=== PATIENT | female | born 1960 | race Caucasian/White ===

== ENCOUNTER 2016-06-06 21:40 | Emergency (ER) | payer BC, OTHER ==
[2016-06-06] MEDS ORDERED: OXAZEPAM 15 MG CAP As Ordered ONE ×2 (23:06)
--- NOTE | 2016-06-07 00:14 | EDDOCDS ---
Physician Documentation [facility] Name: Annemarie Torrez Age: 56 yrs Sex: Female : 1960 Arrival Date: 06/06/2016 Time: 21:40 Bed 12 Private MD: Disposition: 06/06/16 23:46 Discharged to Home/Self Care. Impression: Alcohol abuse with intoxication. - Condition is Stable. - Discharge Instructions: Alcohol and Drug Addiction, Finding Treatment, Alcohol Intoxication, Alcohol Intoxication, Gaej-az-Prkv, Alcohol Withdrawal, Gsvi-vf-Ajsa. - Prescriptions for Oxazepam 30 mg Oral Capsule - take 1 capsule by ORAL route 3 times per day MDD: 3 tabs; 10 capsule. - Medication Reconciliation, Local Pharmacy Hours form. - Follow up: Referral list, As provided by PFS; When: Call to arrange an appointment; Reason: Continuance of care. - Problem is an acute exacerbation. - Symptoms have improved. - Notes: YOU ARE TAKING THE FIRST STEPS AT GETTING HELP. CALL THE NUMBERS PROVIDED BY THE HORSE TRAINER TO ESTABLISH WITH A INPATIENT OR OUTPATIENT REHAB PROGRAM. Historical: - Allergies: no known allergies; - Home Meds: 1. Imodium 2 mg Oral cap as needed 2. Nexium 20 mg Oral cpDR once daily - PMHx: none; - PSHx: Shoulder Arthroplasty, Left; Shoulder Arthroplasty. Right; ; Appendectomy; Cholecystectomy; - Social history: Smoking status: Patient uses tobacco products, heavy tobacco smoker. Patient uses alcohol on a daily basis. patient/guardian reports recent binge of alcohol consumption. No barriers to communication noted, The patient speaks fluent Lao. - Family history: Not pertinent. - : The pt / caregiver states he / she is not on anticoagulants. Home medication list is obtained from family members. - Exposure Risk Screening:: None identified. Vital Signs: 06/06 21:42 BP 154 / 71; Pulse 86; Resp 18; Temp 96.2(O); Pulse Ox 98% on R/A; Weight 122.47 kg / gely 270 lbs (R); Height 5 ft. 1 in. (154.94 cm) (R); Pain 0/10; 22:25 BP 136 / 72 (auto/); jp6 22:26 Pulse 82 MON; Pulse Ox 96% ; jp6 23:00 Pulse 90 MON; Pulse Ox 95% ; jp6 23:30 Pulse 90 MON; jp6 23:52 Pulse 84 MON; jp6 23:52 BP 132 / 78; Pulse 84; Resp 16; Temp 98(O); Pulse Ox 99% on R/A; Pain 0/10; jp6 21:42 Body Mass Index 51.02 (122.47 kg, 154.94 cm) gely MDM: 22:58 Oxazepam 30 mg PO once ordered. mm11 22:58 Consult: Life Support Technician ordered. mm11 23:17 Consult: Life Support Technician complete. ml4 06/07 00:03 Financial registration complete. [facility] Administered Medications: 06/06 23:08 Drug: Oxazepam 30 mg [oxazepam 15 mg capsule (2 caps)] Route: PO; jp6 Signatures: Thuy Babin, PSA PSA ml4 Bernardino Ignacio, DO DO mm11 Pamela Macedo,RN RN rs3 Eun Coronel [facility] Shelby NobleRN RN jp6 MTDD
--- NOTE | 2016-06-07 00:14 | EDDOCDS ---
Nurse's Notes [facility] Name: Annemarie Torrez Age: 56 yrs Sex: Female : 1960 Arrival Date: 06/06/2016 Time: 21:40 Bed 12 Private MD: Diagnosis: Alcohol abuse with intoxication Presentation: 06/06 21:49 Presenting complaint: Patient states: has been drinking every night beer 12 OZ, 8 or rs3 more. vodka 10 Oz every day. Last drink 8 pm tonight. She wants to be in Rehab and get help. family brought her here. Mental Health Triage Level: Level 2: ETOH abuse. Adult Sepsis Screening: The patient does not have new or worsening altered mentation. Patient's respiratory rate is less than 22. Systolic blood pressure is greater than 100. Patient has a qSOFA score of 0- Negative Sepsis Screen. Suicide/Homicide risk assessment- the patient denies having any suicidal and/or homicidal ideations and does not present with any other emotional, behavioral or mental health complaints. Status: Patient is not a customer services supervisor or dependent. Transition of care: patient was not received from another setting of care. 21:49 Acuity: THEA Level 3 rs3 21:49 Method Of Arrival: Walkin/Carried/Asstd rs3 Triage Assessment: 21:55 General: Appears cachectic. Pain: Denies pain. HIV screening NA for this visit Offered rs3 previously. Historical: - Allergies: no known allergies; - Home Meds: 1. Imodium 2 mg Oral cap as needed 2. Nexium 20 mg Oral cpDR once daily - PMHx: none; - PSHx: Shoulder Arthroplasty, Left; Shoulder Arthroplasty. Right; ; Appendectomy; Cholecystectomy; - Social history: Smoking status: Patient uses tobacco products, heavy tobacco smoker. Patient uses alcohol on a daily basis. patient/guardian reports recent binge of alcohol consumption. No barriers to communication noted, The patient speaks fluent Romansh. - Family history: Not pertinent. - : The pt / caregiver states he / she is not on anticoagulants. Home medication list is obtained from family members. - Exposure Risk Screening:: None identified. Screenin:26 Screening information is obtained from the patient. Fall risk: No risks identified. jp6 Assistance ADL's: requires no assistance with activities of daily living. Abuse/DV Screen: The patient / caregiver reports he/she is: not in a situation that causes fear, pain or injury. Nutritional screening: No deficits noted. Advance Directives: Currently, there is no health care proxy. There is no active DNR order. There is no living will. home support is adequate. Assessment: 22:32 Reassessment: Patient appears in no apparent distress at this time. General: Appears in jp6 no apparent distress, comfortable, obese, well developed, well nourished, Behavior is appropriate for age, cooperative, pleasant. Pain: Denies pain. Neurological: Level of Consciousness is awake, alert, Oriented to person, place, time, Speech is normal. EENT: No deficits noted. Cardiovascular: Capillary refill < 3 seconds Heart tones S1 S2 present Rhythm is sinus rhythm No ectopy. Respiratory: Airway is patent Respiratory effort is even, unlabored, Respiratory pattern is regular, symmetrical, Breath sounds are clear bilaterally. GI: Abdomen is obese, Bowel sounds present X 4 quads. : No deficits noted. Derm: Skin is dry, Skin is pale, Skin temperature is warm. Musculoskeletal: No deficits noted. 06/07 00:04 Reassessment: Patient appears in no apparent distress at this time. Patient states jp6 symptoms have improved. General: Appears in no apparent distress, comfortable, Behavior is appropriate for age, cooperative. Neurological: Level of Consciousness is awake, alert, Oriented to person, place, time. Cardiovascular: Rhythm is sinus rhythm No ectopy. Respiratory: Airway is patent Respiratory effort is even, unlabored, Respiratory pattern is regular, symmetrical. Derm: Skin is pink, warm & dry. Social Work Consult: 06/06 23:13 Social Work Note: Met pt at bedside regarding alcohol abuse. Admits drinking daily for ml4 many years and is requesting detox. Admits being at [facility] who referred her here for admission, however was informed by [facility] does not offer detox . She adamantly denies SI and HI, able to CFS. Referrals for outpt services was given at bedside and directed to follow up with [place] for further tx. Vital Signs: 21:42 BP 154 / 71; Pulse 86; Resp 18; Temp 96.2(O); Pulse Ox 98% on R/A; Weight 122.47 kg gely (R); Height 5 ft. 1 in. (154.94 cm) (R); Pain 0/10; 22:25 BP 136 / 72 (auto/); jp6 22:26 Pulse 82 MON; Pulse Ox 96% ; jp6 23:00 Pulse 90 MON; Pulse Ox 95% ; jp6 23:30 Pulse 90 MON; jp6 23:52 Pulse 84 MON; jp6 23:52 BP 132 / 78; Pulse 84; Resp 16; Temp 98(O); Pulse Ox 99% on R/A; Pain 0/10; jp6 21:42 Body Mass Index 51.02 (122.47 kg, 154.94 cm) gely Vitals: 21:42 Log In Time: June 06, 2016 at 21:42. gely ED Course: 21:41 Patient visited by Amelia Horvath PCA. gely 21:41 Patient moved to Waiting gely 21:42 Patient visited by Amelia Horvath PCA. gely 21:42 Patient moved to Pre RCE gely 21:54 Triage Initiated rs3 22:08 Patient moved to 12 cln 22:16 Shelby Noble,RN is Primary Nurse. jp6 22:26 The patient / caregiver is instructed regarding the plan of care and ED course. Cardiac jp6 monitor on. Pulse ox on. NIBP on. 22:37 Bernardino Ignacio DO is Attending Physician. mm11 22:37 Patient visited by Bernardino Ignacio DO. mm11 22:58 Patient visited by Bernardino Ignacio DO. mm11 23:42 Patient visited by Bernardino Ignacio DO. mm11 23:46 Referral list, As provided by PFS is Referral Physician. mm11 23:52 No IV's were initiated during this patient's visit. No procedures done that require jp6 assistance. Administered Medications: 23:08 Drug: Oxazepam 30 mg [oxazepam 15 mg capsule (2 caps)] Route: PO; jp6 Order Results: There are currently no results for this order. Outcome: 23:46 Discharge ordered by Provider. mm11 23:52 Discharge Assessment: Patient awake, alert and oriented x 3. No cognitive and/or jp6 functional deficits noted. Patient verbalized understanding of disposition instructions. patient administered narcotics - yes. Pt provided with safe discharge. The following High Risk Discharge criteria are identified: None. Discharged to home ambulatory, with family. Condition: improved. Discharge instructions given to patient, family, Instructed on discharge instructions, follow up and referral plans. medication usage, Demonstrated understanding of instructions, medications, Pt was receptive of discharge instructions/ teaching. Prescriptions given X 1. No special radiology studies were completed. Property :Personal belongings accompany Pt. 06/07 00:13 Patient left the ED. jp6 Signatures: Thuy Babin, PSA PSA ml4 Bernardino Ignacio, DO DO mm11 Pamela Macedo,RN RN rs3 Amelia Horvath, MIDDLE SCHOOL TEACHER MIDDLE SCHOOL TEACHER Aria Padilla, MIDDLE SCHOOL TEACHER MIDDLE SCHOOL TEACHER Shelby Wolfe,RN RN jp6 SEAND
[2016-06-07] MEDS ORDERED: METAL LOCK LOOP XX ONE (02:52)
--- NOTE | 2016-06-09 01:14 | EDDOCDS ---
Nurse's Notes [facility] Name: Annemarie Torrez Age: 56 yrs Sex: Female : 1960 Arrival Date: 06/06/2016 Time: 21:40 Bed 12 Private MD: Diagnosis: Alcohol abuse with intoxication Presentation: 06/06 21:49 Presenting complaint: Patient states: has been drinking every night beer 12 OZ, 8 or rs3 more. vodka 10 Oz every day. Last drink 8 pm tonight. She wants to be in Rehab and get help. family brought her here. Mental Health Triage Level: Level 2: ETOH abuse. Adult Sepsis Screening: The patient does not have new or worsening altered mentation. Patient's respiratory rate is less than 22. Systolic blood pressure is greater than 100. Patient has a qSOFA score of 0- Negative Sepsis Screen. Suicide/Homicide risk assessment- the patient denies having any suicidal and/or homicidal ideations and does not present with any other emotional, behavioral or mental health complaints. Status: Patient is not a garage door service technician or dependent. Transition of care: patient was not received from another setting of care. 21:49 Acuity: THEA Level 3 rs3 21:49 Method Of Arrival: Walkin/Carried/Asstd rs3 Triage Assessment: 21:55 General: Appears cachectic. Pain: Denies pain. HIV screening NA for this visit Offered rs3 previously. Historical: - Allergies: no known allergies; - Home Meds: 1. Imodium 2 mg Oral cap as needed 2. Nexium 20 mg Oral cpDR once daily - PMHx: none; - PSHx: Shoulder Arthroplasty, Left; Shoulder Arthroplasty. Right; ; Appendectomy; Cholecystectomy; - Social history: Smoking status: Patient uses tobacco products, heavy tobacco smoker. Patient uses alcohol on a daily basis. patient/guardian reports recent binge of alcohol consumption. No barriers to communication noted, The patient speaks fluent Yoruba. - Family history: Not pertinent. - : The pt / caregiver states he / she is not on anticoagulants. Home medication list is obtained from family members. - Exposure Risk Screening:: None identified. Screenin:26 Screening information is obtained from the patient. Fall risk: No risks identified. jp6 Assistance ADL's: requires no assistance with activities of daily living. Abuse/DV Screen: The patient / caregiver reports he/she is: not in a situation that causes fear, pain or injury. Nutritional screening: No deficits noted. Advance Directives: Currently, there is no health care proxy. There is no active DNR order. There is no living will. home support is adequate. Assessment: 22:32 Reassessment: Patient appears in no apparent distress at this time. General: Appears in jp6 no apparent distress, comfortable, obese, well developed, well nourished, Behavior is appropriate for age, cooperative, pleasant. Pain: Denies pain. Neurological: Level of Consciousness is awake, alert, Oriented to person, place, time, Speech is normal. EENT: No deficits noted. Cardiovascular: Capillary refill < 3 seconds Heart tones S1 S2 present Rhythm is sinus rhythm No ectopy. Respiratory: Airway is patent Respiratory effort is even, unlabored, Respiratory pattern is regular, symmetrical, Breath sounds are clear bilaterally. GI: Abdomen is obese, Bowel sounds present X 4 quads. : No deficits noted. Derm: Skin is dry, Skin is pale, Skin temperature is warm. Musculoskeletal: No deficits noted. 06/07 00:04 Reassessment: Patient appears in no apparent distress at this time. Patient states jp6 symptoms have improved. General: Appears in no apparent distress, comfortable, Behavior is appropriate for age, cooperative. Neurological: Level of Consciousness is awake, alert, Oriented to person, place, time. Cardiovascular: Rhythm is sinus rhythm No ectopy. Respiratory: Airway is patent Respiratory effort is even, unlabored, Respiratory pattern is regular, symmetrical. Derm: Skin is pink, warm & dry. Social Work Consult: 06/06 23:13 Social Work Note: Met pt at bedside regarding alcohol abuse. Admits drinking daily for ml4 many years and is requesting detox. Admits being at [facility] who referred her here for admission, however was informed by [facility] does not offer detox . She adamantly denies SI and HI, able to CFS. Referrals for outpt services was given at bedside and directed to follow up with [place] for further tx. Vital Signs: 21:42 BP 154 / 71; Pulse 86; Resp 18; Temp 96.2(O); Pulse Ox 98% on R/A; Weight 122.47 kg gely (R); Height 5 ft. 1 in. (154.94 cm) (R); Pain 0/10; 22:25 BP 136 / 72 (auto/); jp6 22:26 Pulse 82 MON; Pulse Ox 96% ; jp6 23:00 Pulse 90 MON; Pulse Ox 95% ; jp6 23:30 Pulse 90 MON; jp6 23:52 Pulse 84 MON; jp6 23:52 BP 132 / 78; Pulse 84; Resp 16; Temp 98(O); Pulse Ox 99% on R/A; Pain 0/10; jp6 21:42 Body Mass Index 51.02 (122.47 kg, 154.94 cm) gely Vitals: 21:42 Log In Time: June 06, 2016 at 21:42. gely ED Course: 21:41 Patient visited by Amelia Horvath PCA. gely 21:41 Patient moved to Waiting gely 21:42 Patient visited by Amelia Horvath PCA. geyl 21:42 Patient moved to Pre RCE gely 21:54 Triage Initiated rs3 22:08 Patient moved to 12 cln 22:16 Shelby Noble,RN is Primary Nurse. jp6 22:26 The patient / caregiver is instructed regarding the plan of care and ED course. Cardiac jp6 monitor on. Pulse ox on. NIBP on. 22:37 Bernardino Ignacio DO is Attending Physician. mm11 22:37 Patient visited by Bernardino Ignacio DO. mm11 22:58 Patient visited by Bernardino Ignacio DO. mm11 23:42 Patient visited by Bernardino Ignacio DO. mm11 23:46 Referral list, As provided by PFS is Referral Physician. mm11 23:52 No IV's were initiated during this patient's visit. No procedures done that require jp6 assistance. 06/07 00:32 Patient name changed from Annemarie\S\E\S\Abar\S\ to Annemarie\S\Sophy\S\Abar. EDMS 00:34 [facility] [place] Agreement was scanned into [employer] and attached to record. [facility] 10:35 T-Sheet-- Draft Copy was scanned into [employer] and attached to record. gb Administered Medications: 06/06 23:08 Drug: Oxazepam 30 mg [oxazepam 15 mg capsule (2 caps)] Route: PO; jp6 Order Results: There are currently no results for this order. Outcome: 23:46 Discharge ordered by Provider. mm11 23:52 Discharge Assessment: Patient awake, alert and oriented x 3. No cognitive and/or jp6 functional deficits noted. Patient verbalized understanding of disposition instructions. patient administered narcotics - yes. Pt provided with safe discharge. The following High Risk Discharge criteria are identified: None. Discharged to home ambulatory, with family. Condition: improved. Discharge instructions given to patient, family, Instructed on discharge instructions, follow up and referral plans. medication usage, Demonstrated understanding of instructions, medications, Pt was receptive of discharge instructions/ teaching. Prescriptions given X 1. No special radiology studies were completed. Property :Personal belongings accompany Pt. 06/07 00:13 Patient left the ED. jp6 Signatures: Dispatcher [employer] EDMS Lois Jewell, Reg Reg Thuy Busch, PSA PSA ml4 Bernardino Ignacio, DO mm11 Pamela Macedo,RN RN rs3 Amelia Horvath, PROPELLANT ASSEMBLER PROPELLANT ASSEMBLER Eun Alonso Crystal, PROPELLANT ASSEMBLER PROPELLANT ASSEMBLER Shelby Wolfe,RN RN jp6 Chart Complete [facility]
--- NOTE | 2016-06-09 01:14 | EDDOCDS ---
Physician Documentation [facility] Name: Annemarie Torrez Age: 56 yrs Sex: Female : 1960 Arrival Date: 06/06/2016 Time: 21:40 Bed 12 Private MD: Disposition: 06/06/16 23:46 Discharged to Home/Self Care. Impression: Alcohol abuse with intoxication. - Condition is Stable. - Discharge Instructions: Alcohol and Drug Addiction, Finding Treatment, Alcohol Intoxication, Alcohol Intoxication, Ityf-qy-Jkus, Alcohol Withdrawal, Lfqy-fi-Ckxu. - Prescriptions for Oxazepam 30 mg Oral Capsule - take 1 capsule by ORAL route 3 times per day MDD: 3 tabs; 10 capsule. - Medication Reconciliation, Local Pharmacy Hours form. - Follow up: Referral list, As provided by PFS; When: Call to arrange an appointment; Reason: Continuance of care. - Problem is an acute exacerbation. - Symptoms have improved. - Notes: YOU ARE TAKING THE FIRST STEPS AT GETTING HELP. CALL THE NUMBERS PROVIDED BY THE EMBEDDED LINUX DEVELOPER TO ESTABLISH WITH A INPATIENT OR OUTPATIENT REHAB PROGRAM. Historical: - Allergies: no known allergies; - Home Meds: 1. Imodium 2 mg Oral cap as needed 2. Nexium 20 mg Oral cpDR once daily - PMHx: none; - PSHx: Shoulder Arthroplasty, Left; Shoulder Arthroplasty. Right; ; Appendectomy; Cholecystectomy; - Social history: Smoking status: Patient uses tobacco products, heavy tobacco smoker. Patient uses alcohol on a daily basis. patient/guardian reports recent binge of alcohol consumption. No barriers to communication noted, The patient speaks fluent Panamanian. - Family history: Not pertinent. - : The pt / caregiver states he / she is not on anticoagulants. Home medication list is obtained from family members. - Exposure Risk Screening:: None identified. Vital Signs: 06/06 21:42 BP 154 / 71; Pulse 86; Resp 18; Temp 96.2(O); Pulse Ox 98% on R/A; Weight 122.47 kg / gely 270 lbs (R); Height 5 ft. 1 in. (154.94 cm) (R); Pain 0/10; 22:25 BP 136 / 72 (auto/); jp6 22:26 Pulse 82 MON; Pulse Ox 96% ; jp6 23:00 Pulse 90 MON; Pulse Ox 95% ; jp6 23:30 Pulse 90 MON; jp6 23:52 Pulse 84 MON; jp6 23:52 BP 132 / 78; Pulse 84; Resp 16; Temp 98(O); Pulse Ox 99% on R/A; Pain 0/10; jp6 21:42 Body Mass Index 51.02 (122.47 kg, 154.94 cm) gely MDM: 22:58 Oxazepam 30 mg PO once ordered. mm11 22:58 Consult: Automobile Painter ordered. mm11 23:17 Consult: Automobile Painter complete. ml4 06/07 00:03 Financial registration complete. [facility] 00: [facility] Payment Agreement was scanned into [email or web address] and attached to record. [facility] 10:35 T-Sheet-- Draft Copy was scanned into [email or web address] and attached to record. gb Administered Medications: 06/06 23:08 Drug: Oxazepam 30 mg [oxazepam 15 mg capsule (2 caps)] Route: PO; jp6 Signatures: Lois Jewell, Reg Reg gb Thuy Babin, PSA PSA ml4 Bernardino Ignacio, DO DO mm11 Pamela Macedo,RN RN rs3 Eun Coronel [facility] Shelby Noble,RN RN jp6 The chart was reviewed and I authenticate all verbal orders and agree with the evaluation and treatment provided.Attachments: 06/07 00:34 [facility] Payment Agreement [facility] 10:35 T-Sheet-- Draft Copy gb Chart Complete MTDD
--- NOTE | 2016-06-09 01:14 | EDDOCDS ---
Physician Documentation [facility] Name: Annemarie Torrez Age: 56 yrs Sex: Female : 1960 Arrival Date: 06/06/2016 Time: 21:40 Bed 12 Private MD: Disposition: 06/06/16 23:46 Discharged to Home/Self Care. Impression: Alcohol abuse with intoxication. - Condition is Stable. - Discharge Instructions: Alcohol and Drug Addiction, Finding Treatment, Alcohol Intoxication, Alcohol Intoxication, Evbm-du-Jddt, Alcohol Withdrawal, Nkcq-ne-Rpro. - Prescriptions for Oxazepam 30 mg Oral Capsule - take 1 capsule by ORAL route 3 times per day MDD: 3 tabs; 10 capsule. - Medication Reconciliation, Local Pharmacy Hours form. - Follow up: Referral list, As provided by PFS; When: Call to arrange an appointment; Reason: Continuance of care. - Problem is an acute exacerbation. - Symptoms have improved. - Notes: YOU ARE TAKING THE FIRST STEPS AT GETTING HELP. CALL THE NUMBERS PROVIDED BY THE HUMAN RESOURCES RECEPTIONIST TO ESTABLISH WITH A INPATIENT OR OUTPATIENT REHAB PROGRAM. Historical: - Allergies: no known allergies; - Home Meds: 1. Imodium 2 mg Oral cap as needed 2. Nexium 20 mg Oral cpDR once daily - PMHx: none; - PSHx: Shoulder Arthroplasty, Left; Shoulder Arthroplasty. Right; ; Appendectomy; Cholecystectomy; - Social history: Smoking status: Patient uses tobacco products, heavy tobacco smoker. Patient uses alcohol on a daily basis. patient/guardian reports recent binge of alcohol consumption. No barriers to communication noted, The patient speaks fluent Saudi Arabian. - Family history: Not pertinent. - : The pt / caregiver states he / she is not on anticoagulants. Home medication list is obtained from family members. - Exposure Risk Screening:: None identified. Vital Signs: 06/06 21:42 BP 154 / 71; Pulse 86; Resp 18; Temp 96.2(O); Pulse Ox 98% on R/A; Weight 122.47 kg / gely 270 lbs (R); Height 5 ft. 1 in. (154.94 cm) (R); Pain 0/10; 22:25 BP 136 / 72 (auto/); jp6 22:26 Pulse 82 MON; Pulse Ox 96% ; jp6 23:00 Pulse 90 MON; Pulse Ox 95% ; jp6 23:30 Pulse 90 MON; jp6 23:52 Pulse 84 MON; jp6 23:52 BP 132 / 78; Pulse 84; Resp 16; Temp 98(O); Pulse Ox 99% on R/A; Pain 0/10; jp6 21:42 Body Mass Index 51.02 (122.47 kg, 154.94 cm) gely MDM: 22:58 Oxazepam 30 mg PO once ordered. mm11 22:58 Consult: Manager Environmental Health And Safety ordered. mm11 23:17 Consult: Manager Environmental Health And Safety complete. ml4 06/07 00:03 Financial registration complete. [facility] 00: [facility] Payment Agreement was scanned into [employer] and attached to record. [facility] 10:35 T-Sheet-- Draft Copy was scanned into [employer] and attached to record. gb Administered Medications: 06/06 23:08 Drug: Oxazepam 30 mg [oxazepam 15 mg capsule (2 caps)] Route: PO; jp6 Signatures: Lois Jewell, Reg Reg gb Thuy Babin, PSA PSA ml4 Bernardino Ignacio, DO DO mm11 Pamela Macedo,RN RN rs3 Eun Coronel [facility] Shelby Noble,RN RN jp6 The chart was reviewed and I authenticate all verbal orders and agree with the evaluation and treatment provided.Attachments: 06/07 00:34 [facility] Payment Agreement [facility] 10:35 T-Sheet-- Draft Copy gb Chart Complete MTDD
== END 2016-06-07 00:13 | disposition home or self-care (01) ==
LOC: M ED 21:40
DX: F10.120 Alcohol abuse with intoxication, uncomplicated (principal); F17.210 Nicotine dependence, cigarettes, uncomplicated